=== PATIENT | female | born 1985 | race African-American/Black ===

== ENCOUNTER → 2020-03-25 | Outpatient (CLI) | payer BC ==
[~2020-03-25] MED LIST: IBUPROFEN 400400 M2 PO
== END ==
LOC: CAT 15:48
PROVIDERS: ATTEND Nurse Practitioner
DX: S09.90XA Unspecified injury of head, initial encounter (principal); R40.20 Unspecified coma; X58.XXXA Exposure to other specified factors, initial encounter; Y93.89 Activity, other specified; Y92.89 Other specified places as the place of occurrence of the external cause; Y99.8 Other external cause status

== ENCOUNTER 2020-09-20 11:05 | Emergency (ER) | payer BC ==
[~2020-09-20] VITALS: Ht 154.9 cm; Wt 68.0 kg
[2020-09-20 11:08] VITALS: BP 113/83
== END 2020-09-20 12:20 | disposition home or self-care (01) ==
LOC: ER 11:05
DX: G62.9 Polyneuropathy, unspecified (principal); I10 Essential (primary) hypertension; Z90.710 Acquired absence of both cervix and uterus; Z90.89 Acquired absence of other organs; Z79.1 Long term (current) use of non-steroidal anti-inflammatories (NSAID)

== ENCOUNTER 2021-02-05 11:19 | Emergency (ER) | payer BC ==
[~2021-02-05] VITALS: Ht 154.9 cm; Wt 63.5 kg
[2021-02-05 11:47] LABS: URINE BILIRUBIN NEGATIVE (Negative); URINE BLOOD TRACE (Negative); URINE CLARITY CLEAR; URINE COLOR YELLOW; URINE GLUCOSE-RANDOM* NEGATIVE (Negative); URINE KETONES NEGATIVE (Negative); URINE LEUKOCYTES-REFLEX NEGATIVE (Negative); URINE NITRITE-REFLEX NEGATIVE (Negative); URINE PROTEIN (DIPSTICK) NEGATIVE (Negative); URINE SPECIFIC GRAVITY 1.015 (1.005-1.035); URINE UROBILINOGEN 0.2 E.U./dl (0.2-1.0)
[2021-02-05 12:47] LABS: ABSOLUTE NEUTROPHILS 4.4 thou/uL (1.4-8.2); BASOPHILS 0.4 % (0.0-2.0); EOSINOPHILS 0.7 % (0.0-3.0); HEMATOCRIT 37.6 % (37.0-47.0); HEMOGLOBIN 12.6 gm/dL (12.0-15.0); LYMPHOCYTES 35.9 % (24.0-44.0); MCH 29.5 pg (26.0-34.0); MCHC 33.4 g/dL (28.0-37.0); MCV 88.4 fL (80.0-100.0); MONOCYTES 3.6 % (1.0-8.0); PLATELET COUNT 227 thou/uL (150-400); POLYS 59.4 % (36.0-66.0); RBC 4.26 mil/uL (4.20-5.00); RDW 13.6 % (10.5-14.5); WBC 7.4 thou/uL (4.0-11.0)
[2021-02-05 12:53] LABS: CALCIUM 8.8 mg/dL (8.5-10.1); CREATININE 0.8 mg/dL (0.6-1.0); POTASSIUM 3.9 mmol/L (3.5-5.1)
[2021-02-05 14:35] VITALS: BP 140/82
== END 2021-02-05 14:38 | disposition home or self-care (01) ==
LOC: ER 11:19
PROVIDERS: Nurse Practitioner
DX: L29.9 Pruritus, unspecified (principal); Z11.3 Encounter for screening for infections with a predominantly sexual mode of transmission; I10 Essential (primary) hypertension; Z90.89 Acquired absence of other organs; Z90.710 Acquired absence of both cervix and uterus

== ENCOUNTER 2021-03-21 19:08 | Emergency (ER) | payer BC ==
[~2021-03-21] VITALS: Ht 154.9 cm; Wt 63.5 kg
[2021-03-21 19:18] VITALS: BP 106/73
[2021-03-21] MEDS ORDERED: DICLOFENAC SOD50 MG PO (19:41)
== END 2021-03-21 19:49 | disposition home or self-care (01) ==
LOC: ER 19:08
DX: G56.01 Carpal tunnel syndrome, right upper limb (principal); M25.571 Pain in right ankle and joints of right foot; I10 Essential (primary) hypertension; Z90.89 Acquired absence of other organs; Z79.1 Long term (current) use of non-steroidal anti-inflammatories (NSAID); Z72.89 Other problems related to lifestyle; Z90.710 Acquired absence of both cervix and uterus

== ENCOUNTER 2021-04-03 10:38 | Emergency (ER) | payer BC ==
[~2021-04-03] VITALS: Ht 154.9 cm; Wt 63.5 kg
[~2021-04-03 10:38] MED LIST changes: +DICLOFENAC SOD50 MG PO
[2021-04-03] MEDS ORDERED: METOPROLOL TART25 MG PO (10:51)
[2021-04-03] MEDS ORDERED: PROAIR HFA8.5 GM INH (10:51)
[2021-04-03] MEDS ORDERED: DIFLUCAN150 M1 PO (11:50)
[2021-04-03 12:03] VITALS: BP 114/80
== END 2021-04-03 12:05 | disposition home or self-care (01) ==
LOC: ER 10:38
DX: N89.8 Other specified noninflammatory disorders of vagina (principal); I10 Essential (primary) hypertension; Z90.89 Acquired absence of other organs; Z90.710 Acquired absence of both cervix and uterus

== ENCOUNTER 2021-05-29 09:28 | Emergency (ER) | payer BC ==
[~2021-05-29] VITALS: Ht 154.9 cm; Wt 65.8 kg
[~2021-05-29 09:28] MED LIST changes: +DIFLUCAN150 M1 PO; +METOPROLOL TART25 MG PO; +PROAIR HFA8.5 GM INH
[2021-05-29 09:29] VITALS: BP 117/77
[2021-05-29 09:56] LABS: URINE BILIRUBIN NEGATIVE (Negative); URINE BLOOD 2+ (Negative); URINE CLARITY CLOUDY; URINE COLOR YELLOW; URINE GLUCOSE-RANDOM* NEGATIVE (Negative); URINE KETONES NEGATIVE (Negative); URINE LEUKOCYTES-REFLEX 2+ (Negative); URINE NITRITE-REFLEX NEGATIVE (Negative); URINE PROTEIN (DIPSTICK) NEGATIVE (Negative); URINE SPECIFIC GRAVITY 1.025 (1.005-1.035); URINE UROBILINOGEN 0.2 E.U./dl (0.2-1.0)
[2021-05-29 10:37] LABS: CASTS None Seen /LPF (None Seen); SQUAMOUS >10 Many /LPF (0-3); URINE RBC 3-10 Few /HPF (NONE SEEN); URINE WBC-REFLEX 0-5 Rare /HPF (0-5)
[2021-05-29 10:38] LABS: CRYSTALS None Seen /LPF (None Seen)
[2021-05-29] MEDS ORDERED: FLAGYL500 M1 PO (10:50)
== END 2021-05-29 11:05 | disposition home or self-care (01) ==
LOC: ER 09:28
PROVIDERS: Student in an Organized Health Care Education/Training Program
DX: N76.0 Acute vaginitis (principal); B96.89 Other specified bacterial agents as the cause of diseases classified elsewhere; I10 Essential (primary) hypertension; N17.9 Acute kidney failure, unspecified; Z90.49 Acquired absence of other specified parts of digestive tract; Z90.710 Acquired absence of both cervix and uterus; Z79.899 Other long term (current) drug therapy; Z79.1 Long term (current) use of non-steroidal anti-inflammatories (NSAID); Z79.51 Long term (current) use of inhaled steroids

== ENCOUNTER 2021-08-20 09:28 | Emergency (ER) | payer BC ==
[~2021-08-20] VITALS: Ht 154.9 cm; Wt 65.8 kg
[~2021-08-20 09:28] MED LIST changes: +FLAGYL500 M1 PO
[2021-08-20 09:38] VITALS: BP 111/78
== END 2021-08-20 10:48 | disposition home or self-care (01) ==
LOC: ER 09:28
DX: M79.641 Pain in right hand (principal); R20.0 Anesthesia of skin; I10 Essential (primary) hypertension; Z90.89 Acquired absence of other organs; Z90.710 Acquired absence of both cervix and uterus; Z79.1 Long term (current) use of non-steroidal anti-inflammatories (NSAID); Z79.51 Long term (current) use of inhaled steroids; Z79.899 Other long term (current) drug therapy